=== PATIENT | female | born 1950 | race Caucasian/White ===

== ENCOUNTER 2019-11-07 11:46 | Day surgery (SDC) | payer OTHER, BC ==
[2019-10-28 12:56] VITALS: BMI 26.6
--- NOTE | 2019-11-07 11:27 | OP ---
Operative Note - Note: Operative Date: 11/07/19 Pre-Operative Diagnosis: Ventral Hernia Operation: Laparoscopic Repair of Ventral Hernia. Laparoscopic Lysis of Adhesions Findings: 3 hernias noted in midline above umbilicus. Omental fat reduced into abdominal cavity and compsite mesh applied with tacking instrument Lysis of adhesions performed between hernia sac and abdominal wall Implants: Ventrio Hernia patch Post-Operative Diagnosis: Same as Pre-op (Abdominal adhesions) Surgeon: Antony Roberts Wrapper Sizer: Mitesh Baires Anesthesia: General Estimated Blood Loss (mls): 20 Operative Report Dictated: Yes
--- NOTE | 2019-11-07 11:33 | SURG ---
Surgery Frame Expander Note Frame Expander: Mitesh Baires PA-C Date of Service: 11/07/19 Diagnosis: Ventral Hernia Procedure: Laparoscopic Repair of Ventral Hernia. Laparoscopic Lysis of Adhesions I was present for the entirety of the operative procedure. For further detail, please refer to operative report. Visit type - Case Type Case Type: Scheduled - Emergency Emergency Visit: No - New patient This patient is new to me today: Yes Date on this admission: 11/07/19 - Critical Care Critical Care patient: No
[~2019-11-07 11:46] MED LIST: BUPIVACAINE HCL/PF 0.25% (2.5MG/ML) 10 ML VIAL IJ ONE; BUPIVACAINE HCL/PF 0.25% (2.5MG/ML) 10 ML VIAL ONE; BUPIVACAINE HCL/PF 2.5 MG/ML - 30 ML VIAL IJ ONE; BUPIVACAINE LIPOSOME/PF (EXPAREL) 266 MG/20 ML VIAL ONE; DEXAMETHASONE SOD PHOSPHATE 4 MG/1 ML VIAL ONE; EPHEDRINE SULFATE/0.9% NACL/PF 50 MG/10 ML SYRINGE NR ONE; GLYCOPYRROLATE 0.2 MG/1 ML VIAL ONE; HYDROmorphone HCL CARPU-JECT 1 MG/1 ML DISP.SYRIN IVPB PRN; LACTATED RINGERS SOLUTION 1,000 ML IV SCH; MIDAZOLAM HCL 2 MG/2 ML SINGLE DOSE VIAL ONE; NEOSTIGMINE METHYLSULFATE 0.5 MG/ML - 10 ML MDV ONE; ONDANSETRON 4 MG/2 ML VIAL IVPUSH PRN; ONDANSETRON 4 MG/2 ML VIAL ONE; PROPOFOL 20 ML ONE; ROCURONIUM BROMIDE 50 MG/5 ML SYRINGE ONE; SUCCINYLCHOLINE CHLORIDE 200 MG/10 ML SYRINGE ONE; ceFAZolin SODIUM 1 GM VIAL ONE
[2019-11-07] MEDS ORDERED: FAMOTIDINE 20 MG/50 ML IVPB 20 MG/50 ML MG IVPB ONE (12:02)
[2019-11-07] MEDS ORDERED: FAMOTIDINE 20 MG PREMIXED IVPB IVPB ONE (12:20)
--- NOTE | 2019-11-07 12:30 | OP ---
DATE OF OPERATION: 11/07/2019 PREOPERATIVE DIAGNOSIS: Ventral hernia. POSTOPERATIVE DIAGNOSES: 1. Ventral hernia. 2. Abdominal adhesions. PROCEDURE PERFORMED: 1. Laparoscopic repair of ventral hernia. 2. Laparoscopic lysis of adhesions. 3. Placement of intraabdominal hernia mesh. 4. Diagnostic laparoscopy. OPERATING SURGEON: Antony Roberts MD AIRLINE PILOT: ROGELIO Anand ANESTHESIA: General. ESTIMATED BLOOD LOSS: 20 mL OPERATIVE PROCEDURE: The patient was brought into the operating room, placed on the operating table in the supine position. All precautions were taken initially including padding for the back and Venodyne boots were placed on both lower extremities. The patient also had a urinary bladder catheter placed for decompression of the bladder. At this point the abdomen was prepped and draped in the usual manner. A Veress needle was placed to the left of the umbilicus and a pneumoperitoneum was established. Under direct vision with the laparoscopic camera a No. 5 bladeless trocar was placed in the left side of the abdomen to the left of the umbilicus and through that trocar laparoscopic camera was placed. Under direct vision a No. 5 bladeless trocar was placed in the midline below the umbilicus but well above the symphysis pubis. This was followed by a No. 12 bladeless trocar in the right side equivalent to the umbilicus and lateral. At this point attention was directed to the midportion of the abdomen where there was a lot of scar tissue. There was omentum that was going through the abdominal wall which had been proven on the preoperative CAT scan to be evidence of a ventral hernia. Blunt dissection was used with the laparoscopic dissecting instrument to pull the omental fat out from the hernia sac. This continued in a gradual direction and at times electrocautery was needed to dissection the adhesions between the omentum and the hernia sac. Once this was reduced into the abdominal cavity, the hernia sac was dissected off of the abdominal wall fascia, and now the entire hernia defect was in view. There was noted to be on the CAT scan 2 hernias in close proximity, but actually there were three that were found. A much smaller more superior one which was approximately 0.5 cm was not seen on the CAT scan. The reported ones seen on the CAT scan were both in the midline or slightly to the left and above the umbilicus. Now that all the fat contents were reduced, the hernia sac was dissected off the fascia. Attention was now directed to placing a mesh for repair. The mesh was rolled up and placed through the No. 12 trocar site. It was a Ventrio hernia patch. Once this was placed in the abdominal cavity, it was rolled out and there was a Prolene suture that was placed in the middle of it. The Endo closure device was used to go through the center of the hernia and brick picker the suture and place the mesh in place. Once the mesh was in place, it was tacked to the abdominal wall with the abdominal tacker in a circular direction starting from 12 o'clock and going all the way around to 11 o'clock. Once this was completed from different angles and different trocar sites, the mesh appeared to be fully against the abdominal wall and covering all 3 hernia defects. At this juncture the No. 12 trocar site was closed with Endo closure device to prevent internal hernia and to prevent bleeding. Under direct vision all trocars were removed and the pneumoperitoneum was released. All trocar sites received 0.25% Marcaine and were closed with 4-0 Biosyn in subcuticular fashion. Dressings were applied. The patient awoke from anesthesia and transferred out of the operating room to the recovery room in stable condition. Cj [id number]
[2019-11-07 13:27] LABS: HEMATOCRIT 41.7 % (32.4-45.2); HEMOGLOBIN 13.7 GM/dl (10.7-15.3); MCHC 32.9 g/dl (32.0-36.0); MEAN CELL VOLUME 88.1 fl (80-96); MEAN PLT VOLUME 9.2 fl (7.5-11.1); PLATELET COUNT 344 K/MM3 (134-434); RBC 4.73 M/mm3 (3.60-5.2); RDW 12.7 % (11.6-15.6); WHITE BLOOD COUNT 10.9 K/mm3 (4.0-10.8)
[2019-11-07 13:34] LABS: ALBUMIN 3.8 g/dl (3.4-5.0); BILIRUBIN,TOTAL 0.4 mg/dl (0.2-1); CALCIUM 8.7 mg/dl (8.5-10); CREATININE 0.8 mg/dl (0.55-1.3); POTASSIUM 3.5 mmol/L (3.5-5.1); TOT PROT 6.7 g/dl (6.4-8.2)
[2019-11-07] MEDS: oxyCODONE HCL 5 MG TABLET PO PRN ×3 (15:43→23:07)
[2019-11-07] MEDS: HEPARIN NA (PORCINE) 5,000 UNITS/ML 1ML VIAL SQ SCH ×2 (15:45→21:59)
[2019-11-07] MEDS: SODIUM CHLORIDE 1,000 ML IV SCH (15:45)
[2019-11-07] MEDS ORDERED: POTASSIUM CHLORIDE TABS 10 MEQ TABLET.ER (FP) PO ONE (17:01)
[2019-11-07] MEDS: FAMOTIDINE 20 MG/50 ML IVPB 20 MG/50 ML MG IVPB SCH (21:59)
[2019-11-08] MEDS: oxyCODONE HCL 5 MG TABLET PO PRN ×2 (06:50→10:00)
[2019-11-08] MEDS ORDERED: HYDROmorphone HCL 0.5 MG/0.5 ML SYRINGE IVPB PRN (07:29)
[2019-11-08 08:01] LABS: HEMOGLOBIN 13.1 GM/dl (10.7-15.3); MCH 29.4 pg (25.7-33.7); MCHC 33.6 g/dl (32.0-36.0); MEAN CELL VOLUME 87.5 fl (80-96); PLATELET COUNT 430 K/MM3 (134-434); RBC 4.45 M/mm3 (3.60-5.2); RDW 12.8 % (11.6-15.6); WHITE BLOOD COUNT 14.6 K/mm3 (4.0-10.8)
[2019-11-08 08:11] LABS: ALBUMIN 3.6 g/dl (3.4-5.0); BILIRUBIN,TOTAL 0.4 mg/dl (0.2-1); CALCIUM 8.8 mg/dl (8.5-10); CREATININE 0.8 mg/dl (0.55-1.3); POTASSIUM 4.6 mmol/L (3.5-5.1); TOT PROT 6.4 g/dl (6.4-8.2)
[2019-11-08] MEDS: FAMOTIDINE 20 MG/50 ML IVPB 20 MG/50 ML MG IVPB SCH (09:37)
[2019-11-08] MEDS: HEPARIN NA (PORCINE) 5,000 UNITS/ML 1ML VIAL SQ SCH (09:37)
[2019-11-08] MEDS: SODIUM CHLORIDE 1,000 ML IV SCH (11:20)
--- NOTE | 2019-11-08 12:36 | PN ---
Progress Note (short form) - Note Progress Note: POD#1 Afebrile; VSS Pt doing well Minimal/moderate abdominal pain Tolerating PO soft diet Ambulating well C/O slight weakness, but sat in chair for 3 hours P/E- Abd- binder in place no drainage Ext- no swelling, no edema WBC-14.6 H/H-13.1/39.0 P- D/C home PO diet as tolerated Continue ambulation All instructions given F/U in 9 days
--- NOTE | 2019-11-08 12:59 | PN ---
Progress Note (short form) - Note Progress Note: 69F POD1 s/p ventral hernia repair under GA-ETT with peripheral nerve blocks for post operative pain relief. Pt states that pain is well controlled and reports no anesthetic complications. AVSS. Continue current regimen.
--- NOTE | 2019-11-08 13:22 | DS ---
DATE OF ADMISSION: 11/07/2019 DATE OF DISCHARGE: 11/08/2019 HISTORY OF PRESENT ILLNESS/HOSPITAL COURSE: The patient is a 69-year-old woman who complains of pain and a mass in the upper abdomen for a few months prior to admission. She was admitted to [facility] on November 07, 2019, for elective ventral hernia repair. The patient underwent a laparoscopic ventral hernia repair with mesh and the details described in the operative note. Postoperatively the patient was sent to the recovery room where she was stabilized and sent up to the floor. On the floor the patient was doing well with normal vital signs and normal blood work after the surgery. She was able to get out of bed and walk to the bathroom well, only complained of slight weakness and not much discomfort. The patient had no episodes of vomiting and was tolerating a soft diet without any difficulty. Her lab values after surgery and again the following morning on November 08, 2019, were within normal limits. On November 08, 2019, the patient was ambulating, sitting up in a chair without any difficulty. She has an abdominal binder in place and feels comfortable with that. Her diet is slowly improving as she is still on soft foot and planned to be advanced to regular food at home upon discharge. The patient was given full instructions for home including bathing starting November 10, 2019, and not lifting up to a maximum of 25 pounds for the first 12 weeks after surgery. She will follow up in [address] Roberts in his office. Cj [id number]
[2019-11-08 14:13] VITALS: BP 121/56; PULSE 78; TEMP 98.5
== END 2019-11-08 14:51 | disposition home or self-care (01) ==
LOC: FM/S 11:46 → FASUSAT 11:46 → UNDOADMIN 11:46 → FM/S 12:03 → UNDOADMIN 12:03 → FM/S 14:54 → FASUSAT 11-08 14:51
PROVIDERS: ATTEND Surgery
PROC: 0WUF4JZ Supplement Abdominal Wall with Synthetic Substitute, Percutaneous Endoscopic Approach (ICD-10-PCS; principal; 2019-11-07 09:55)
DX: K43.9 Ventral hernia without obstruction or gangrene (principal); K66.0 Peritoneal adhesions (postprocedural) (postinfection)
CPT/HCPCS: 36415; 80053; 85027; 94760; J1644